=== PATIENT | female | born 1940 | race African-American/Black ===

== ENCOUNTER 2017-05-08 15:32 | Inpatient (IN) | payer OTHER ==
[~2017-05-08] VITALS: Ht 152.4 cm; Wt 80.9 kg
--- NOTE | ~2017-05-08 | EKG ---
[address] [address] ELECTROCARDIOGRAM REPORT Name: PENNINGTONAARTI Room #: 358-P ADM IN M.R.#: [id number] Admission: 05/08/17 Attend Phys: Cornell Myers MD Discharge: Date of : 40 Report #: [id number] THIS REPORT FOR: //name// [facility] ED Test Date: 2017-05-08 Test Time: 16:35:04 Pat Name: AARTI PENNINGTON Department: Room: 358 Gender: F Assistant Corporate Controller: KAELYN : 1940 Requested By: Vivek Christian Order Number: [id number] MD: Barron Haile Measurements Intervals [place] Rate: 82 P: 21 SD: 174 QRS: -14 QRSD: 85 T: 38 QT: 383 QTc: 448 Interpretive Statements Sinus rhythm Probable left atrial enlargement Left ventricular hypertrophy Inferior infarct, old Compared to ECG 02/03/2016 22:24:46 Left ventricular hypertrophy now present Myocardial infarct finding now present Sinus tachycardia no longer present T-wave abnormality no longer present Electronically Signed On 05-09-2017 9:06:04 CANDLE EXTRUSION MACHINE OPERATOR by Barron Haile [email or web address] <ELECTRONICALLY SIGNED> By: Barron Haile MD 05/09/17 0906 [id number] 1635 Barron Haile MD /EPI
[~2017-05-08 15:32] MED LIST: BISACODYL SUPP10 MG RECTAL; CELEXA10 MG PO; CERTAVITE SR-A1 EACH PO; CILOSTAZOL 100100 M1 PO; COLACE 100 MG100 MG PO; DUONEB 2.5-0.5 M3 ML INH; FENTANYL PA25 MCG/HR TRANSDERM; FIBER LAX625 MG PO; GLUCOPHAGE1000 MG PO; LASIX 20 MG TAB20 MG PO; LEVAQUIN 500 M500 M2 PO; LEVEMIR SUBQ; LEVOTHYROXIN0.025 MG PO; LIDODERM 5%1 PATCH TOP; LIPITOR80 MG PO; LOPERAMIDE2 MG PO; MAGOX 400400 MG PO; MIRALAX17 G1 PO; MUCINEX TA600 MG/TA2 PO; NEURONTIN 300300 M1 PO; NEURONTIN600 MG PO; PANTOPRAZOLE SO40 M1 PO; PERCOCET PO; PROBIOTIC1 EAC1 PO; PULMICORT0.25 MG/3; SINGULAIR 10 MG10 M1 PO; TRAMADOL HCL50 MG PO; TYLENOL325 MG PO
[2017-05-08 15:33] VITALS: BP 130/79
[2017-05-08 16:38] LABS: BE(vivo) 4.3 mmol/L (-2 to +3); PCO2 38.6 mmHg (35.0-45.0); PO2 57.6 mmHg (80.0-100.0); pH 7.478 (7.360-7.450); sO2 91.8 % (92.0-98.0)
[2017-05-08 17:12] LABS: ABSOLUTE NEUTROPHILS 10.1 thou/uL (1.4-8.2); BASOPHILS 0.8 % (0.0-2.0); EOSINOPHILS 0.4 % (0.0-3.0); HEMATOCRIT 46.1 % (37.0-47.0); HEMOGLOBIN 15.6 gm/dL (12.0-15.0); LYMPHOCYTES 20.8 % (24.0-44.0); MCH 29.4 pg (26.0-34.0); MCHC 33.8 g/dL (28.0-37.0); MONOCYTES 8.3 % (1.0-8.0); PLATELET COUNT 272 thou/uL (150-400); POLYS 69.7 % (36.0-66.0); RDW 15.9 % (10.5-14.5); WBC 14.4 thou/uL (4.0-11.0)
[2017-05-08 17:24] LABS: ANION GAP 9 mmol/L (7-16); BUN 15 mg/dL (7-18); CALCIUM 9.8 mg/dL (8.5-10.1); CHLORIDE 93 mmol/L (98-107); CO2 29 mmol/L (21-32); CREATININE 0.8 mg/dL (0.6-1.0); GLUCOSE 118 mg/dL (74-106); POTASSIUM 3.5 mmol/L (3.5-5.1); SODIUM 131 mmol/L (136-145)
[2017-05-08 17:29] LABS: ALBUMIN 3.3 g/dL (3.4-5.0); SGOT 19 U/L (15-37); SGPT 11 U/L (30-65); TOTAL BILIRUBIN 0.8 mg/dL (<0.1-1.0); TOTAL PROTEIN 7.8 g/dL (6.4-8.2); TROPONIN-I < 0.04 ng/mL (<0.06)
[2017-05-08 19:18] VITALS: BP 132/74
[2017-05-08 20:50] VITALS: BP 143/77
[2017-05-08 23:35] VITALS: BP 121/64
[2017-05-09 03:20] VITALS: BP 107/68
[2017-05-09 06:27] LABS: HEMATOCRIT 46.5 % (37.0-47.0); HEMOGLOBIN 15.6 gm/dL (12.0-15.0); MCH 29.5 pg (26.0-34.0); MCHC 33.5 g/dL (28.0-37.0); MCV 88.1 fL (80.0-100.0); RBC 5.28 mil/uL (4.20-5.00); RDW 15.5 % (10.5-14.5); WBC 9.5 thou/uL (4.0-11.0)
[2017-05-09 06:39] LABS: CALCIUM 9.4 mg/dL (8.5-10.1); POTASSIUM 3.1 mmol/L (3.5-5.1)
[2017-05-09 07:18] VITALS: BP 111/62
[2017-05-09 12:09] VITALS: BP 108/66
[2017-05-09 16:10] VITALS: BP 161/116
[2017-05-09 19:25] VITALS: BP 101/58
[2017-05-10 03:09] VITALS: BP 116/62
[2017-05-10 08:50] VITALS: BP 89/66
[2017-05-10 12:00] VITALS: BP 120/59
[2017-05-10 17:00] VITALS: BP 104/56
[2017-05-10 19:46] VITALS: BP 115/53
[2017-05-10] MEDS ORDERED: NEURONTIN 400M400 M2 PO (19:56)
[2017-05-11 05:49] VITALS: BP 111/53
[2017-05-11 08:48] LABS: CALCIUM 8.8 mg/dL (8.5-10.1); CREATININE 0.7 mg/dL (0.6-1.0); POTASSIUM 4.2 mmol/L (3.5-5.1)
[2017-05-11 08:53] VITALS: BP 107/54
[2017-05-11 14:35] VITALS: BP 107/54
[2017-05-11 15:35] VITALS: BP 107/54
[2017-05-11 16:29] VITALS: BP 107/54
== END 2017-05-11 19:00 | disposition home health service (06) | DRG 871 ==
LOC: ER 15:32 → EROBS 18:12 → 3W 18:12
PROVIDERS: Hospitalist; Physician Assistant
DX: A41.9 Sepsis, unspecified organism (principal); J96.01 Acute respiratory failure with hypoxia; J44.1 Chronic obstructive pulmonary disease with (acute) exacerbation; J44.0 Chronic obstructive pulmonary disease with (acute) lower respiratory infection; J20.9 Acute bronchitis, unspecified; Z96.651 Presence of right artificial knee joint; E11.9 Type 2 diabetes mellitus without complications; E89.0 Postprocedural hypothyroidism; I10 Essential (primary) hypertension; F17.210 Nicotine dependence, cigarettes, uncomplicated; G89.29 Other chronic pain; E66.01 Morbid (severe) obesity due to excess calories; E78.5 Hyperlipidemia, unspecified; Z79.899 Other long term (current) drug therapy; Z93.0 Tracheostomy status; Z68.34 Body mass index [BMI] 34.0-34.9, adult; Z88.0 Allergy status to penicillin
CPT/HCPCS: 10779

== ENCOUNTER 2020-12-30 00:21 | Inpatient (IN) | payer OTHER ==
[~2020-12-30] VITALS: Ht 154.9 cm; Wt 64.4 kg
--- NOTE | ~2020-12-30 | EMS ---
[address] [address] EMS Patient Care Report Name: AARTI PENNINGTON Room #: REG ANDRÉS Jaeger#: [id number] Admission: 12/30/20 Attend Phys: Discharge: Date of : 40 Report #: [id number] THIS REPORT FOR: //name// Report Transmitted: 12/30/2020 00:38 EMS Care Summary [place], [place]/[facility] Incident [id number] @ 12/29/2020 23:38 Incident Location [address] [place] [id number] Patient AARTI PENNINGTON Female, 80 Years 1940 Patient Address [address] [place] [address] Patient History Arthritis, Patient Allergies Penicillin allergy, Patient Medications Tramadol, Gabapentin, Chief Complaint SHORTNESS OF BREATH Disposition Transported No Lights/[place] Dispatch Reason Sick Person Transported To [facility] Narrative DISPATCHED TO A SICK. ARRIVED ON SCENE TO FIND FIRE CREW TALKING WITH PATIENT SITTING ON HER WALKER IN THE BACK BEDROOM. SHE SAID THAT SHE IS HAVING HEAD AND RIGHT SIDE PAIN FOR ABOUT A DAY NOW. SHE SAID SHE IS ALSO HAVING A CHRONIC LOWER BACK PAIN THAT IS BOTHERING HER TONIGHT. PATIENT VITALS WERE OBTAINED. [address] [address] EMS Patient Care Report Name: AARTI PENNINGTON Room #: REG ER Mil#: [id number] Admission: 12/30/20 Attend Phys: Discharge: Date of : 40 Report #: [id number] SHE WAS MOVED TO THE FRONT DOOR ON HER WHEELCHAIR AND ASSISTED IN STANDING AND SITTING ON THE COT. PATIENT WAS SECURED WITH STRAPS AND MOVED TO THE AMBULANCE. INSIDE THE AMBULANCE VITALS WERE REOBTAINED AND PATIENT MENTIONED THAT SHE HAS ALSO BEEN A LITTLE SHORT OF BREATH SINCE ABOUT 4PM THIS EVENING. HER LUNGS WERE AUCILTATED AND FOUND TO HAVE WHEEZES IN ALL JO. PATIENT WAS PLACED ON A 3 LEAD AND ADMINISTERED A NEBULIZED BREATHING TREATMENT. PATIENT WAS TRANSPORTED TO THE HOSPITAL WITH VITALS AND INTERVENTIONS MONITORED. DURING TRANSPORT SHE SAID SHE FELT LIKE HER BREATHING WAS BETTER BUT THE PAIN STILL REMAINED. UPON ARRIVAL AT THE HOSPITAL PATIENT WAS MOVED INTO THE ED ROOM 6 ON THE COT AND WAS LIFTED OVER TO THE HOSPITAL BED. PATIENT CARE WAS TURNED OVER TO ED NURSING STAFF. Initial Vitals @23:57BP: 188/78, @23:46P: 95,R: 18,BP: 174/81,Pain: 8/10,GCS: 15,CO: 5,SpO2: 100,Revised Trauma: 12, @00:10P: 90,R: 18,BP: 157/106,Pain: 8/10,GCS: 15,SpO2: 99,Revised Trauma: 12, Assessments @23:44MENTAL:Person Oriented,Place Oriented,Event Oriented,Time Oriented,SKIN:HEENT:Head/Face: No Abnormalities,Neck/Airway: No Abnormalities,LUNG SOUNDS:General: No Abnormalities,Left Upper: No Abnormalities,Right Upper: No Abnormalities,Left Lower: No Abnormalities,Right Lower: No Abnormalities,ABDOMEN:General: No Abnormalities,Left Upper: No Abnormalities,Right Upper: No Abnormalities,Left Lower: No Abnormalities,Right Lower: No Abnormalities,PELVIS//GI:No Abnormalities,EXTREMITIES:Capillary Refill: Right Upper: < 2 Sec,Left Arm: No Abnormalities,Right Arm: No Abnormalities,Left Leg: No Abnormalities,Right Leg: No Abnormalities,PULSE:Radial: 2+ Normal,NEURO:No Abnormalities, Impression Shortness of breath Procedures @23:44ALS AssessmentResponse: UnchangedSucceeded@23:50Albuterol - 2.5 Milligrams (mg) - NebulizedResponse: Unchanged@00:00Albuterol - 2.5 Milligrams (mg) - NebulizedResponse: Unchanged@23:50Oxygen FlowRate: 8 Device: Nebulizer Response: UnchangedSucceeded@23:50Atrovent - 0.5 Milligrams (mg) - NebulizedResponse: Unchanged@23:463-Lead ECGResponse: UnchangedSucceeded Timeline 23:37,Call Received 23:37,Dispatch Notified 23:38,Dispatched 23:39,En Route 23:43,On Scene [facility] [address] [place] [address] EMS Patient Care Report Name: AARTI PENNINGTON Room #: REG ANDRÉS Jaeger#: [id number] Admission: 12/30/20 Attend Phys: Discharge: Date of : 40 Report #: [id number] 23:44,At Patient 23:44,ALS Assessment,Response: UnchangedSucceeded, 23:46,3-Lead ECG,Response: UnchangedSucceeded, 23:46,BP: 174/81 M,PULSE: 95,RR: 18 R,SPO2: 100 Ox,ETCO2: ,BG: ,PAIN: 8,GCS: 15, 23:50,Albuterol - 2.5 Milligrams (mg) - Nebulized,Response: Unchanged 23:50,Oxygen FlowRate: 8 Device: Nebulizer Response: UnchangedSucceeded, 23:50,Atrovent - 0.5 Milligrams (mg) - Nebulized,Response: Unchanged 23:57,BP: 188/78 M,PULSE: ,RR: R,SPO2: Ox,ETCO2: ,BG: ,PAIN: ,GCS: , 00:00,Albuterol - 2.5 Milligrams (mg) - Nebulized,Response: Unchanged 00:05,Depart Scene 00:10,BP: 157/106 M,PULSE: 90,RR: 18 R,SPO2: 99 Ox,ETCO2: ,BG: ,PAIN: 8,GCS: 15, 00:15,At Destination 00:31,Call Closed Disclaimer v1.1 Copyright 2020 [employer] This EMS Care Summary contains data elements from the applicable legal record (which may be displayed differently). It is designed to provide pertinent information for the following purposes: continuity of care, clinical quality, and state data reporting. The complete legal record is available to ED staff and administrators of the receiving hospital in ES's Patient Tracker. All data is provided "as is."
[~2020-12-30 00:21] MED LIST changes: +NEURONTIN 400M400 M2 PO
[2020-12-30 00:22] VITALS: BP 148/88
[2020-12-30] MEDS ORDERED: ALEVE220 M1 PO (00:47)
[2020-12-30 01:58] LABS: ABSOLUTE NEUTROPHILS 11.8 thou/uL (1.4-8.2); BASOPHILS 0.6 % (0.0-2.0); HEMOGLOBIN 16.2 gm/dL (12.0-15.0); LYMPHOCYTES 8.5 % (24.0-44.0); MCH 31.2 pg (26.0-34.0); MCHC 33.1 g/dL (28.0-37.0); MCV 94.3 fL (80.0-100.0); MONOCYTES 2.1 % (1.0-8.0); PLATELET COUNT 232 thou/uL (150-400); POLYS 88.8 % (36.0-66.0); RDW 15.7 % (10.5-14.5); WBC 13.3 thou/uL (4.0-11.0)
[2020-12-30 02:05] LABS: CALCIUM 8.5 mg/dL (8.5-10.1); CREATININE 0.7 mg/dL (0.6-1.0); POTASSIUM 3.6 mmol/L (3.5-5.1)
[2020-12-30 02:15] LABS: ALBUMIN 3.4 g/dL (3.4-5.0); TOTAL BILIRUBIN 0.4 mg/dL (0.2-1.0); TOTAL PROTEIN 8.1 g/dL (6.4-8.2)
[2020-12-30 02:23] LABS: URINE BILIRUBIN NEGATIVE (Negative); URINE BLOOD TRACE (Negative); URINE CLARITY SL CLOUDY; URINE COLOR YELLOW; URINE GLUCOSE-RANDOM* NEGATIVE (Negative); URINE KETONES NEGATIVE (Negative); URINE LEUKOCYTES-REFLEX NEGATIVE (Negative); URINE NITRITE-REFLEX NEGATIVE (Negative); URINE PROTEIN (DIPSTICK) 1+ (Negative)
[2020-12-30 03:32] LABS: BACTERIA-REFLEX >30 Many /HPF (None Seen); CASTS None Seen /LPF (None Seen); CRYSTALS None Seen /LPF (None Seen); MUCUS None Seen strn/LPF (None Seen); SQUAMOUS None Seen /LPF (0-3); URINE RBC None Seen /HPF (NONE SEEN); URINE WBC-REFLEX None Seen /HPF (0-5)
[2020-12-30 07:39] VITALS: BP 187/90
[2020-12-30 12:47] VITALS: BP 164/84
--- NOTE | 2020-12-30 12:55 | NUR ---
PT HAS BEEN PTO SINCE ARRIVING. PT STATED SHE IS NOT HUNGRY AT THIS TIME.
[2020-12-30 17:00] VITALS: BP 123/59
[2020-12-30 17:30] VITALS: BP 123/67
[2020-12-30 19:52] VITALS: BP 142/50
--- NOTE | 2020-12-31 03:29 | NUR ---
SAT ON THE RECLINER FOR ABOUT 4 HOURS THEN BACK TO BED.USING PUREWICK AND BRIEF.DENIES PAIN.PT SELF SUCTION.MONITOR SHOWS SR.POC CONTINUED.
[2020-12-31 04:25] VITALS: BP 117/59
--- NOTE | 2020-12-31 07:34 | EKG ---
[place] [address] [facility] [place] [address] ELECTROCARDIOGRAM REPORT Name: AARTI PENNINGTON Room #: 212-P ADM IN M.R.#: [id number] Admission: 12/30/20 Attend Phys: Veronica Richardson Discharge: Date of : 40 Report #: [id number] [facility] ED Test Date: 2020-12-30 Test Time: 00:28:26 Pat Name: AARTI PENNINGTON Department: Room: [facility] Gender: F [employer] Superintendent: : 1940 Requested By: Natanael Amado Order Number: [id number] MD: Aleksandr Lorenzo Measurements Intervals [place] Rate: 94 P: 47 VA: 205 QRS: 28 QRSD: 98 T: 45 QT: 364 QTc: 456 Interpretive Statements Sinus rhythm Atrial premature complex Probable left atrial enlargement Compared to ECG 05/08/2017 16:35:04 Atrial premature complex(es) now present Left ventricular hypertrophy no longer present Myocardial infarct finding no longer present Electronically Signed On 12-31-2020 7:34:03 CDT by Aleksandr Lorenzo [email or web address] <ELECTRONICALLY SIGNED> By: Aleksandr Lorenzo MD, [facility] 12/31/20 0734 0028 0028 Aleksandr Lorenzo MD, [facility] /EPI
[2020-12-31 07:40] VITALS: BP 133/68
[2020-12-31 11:20] VITALS: BP 142/62
[2020-12-31 15:30] VITALS: BP 117/78
[2020-12-31 19:39] VITALS: BP 106/77
[2021-01-01 04:07] VITALS: BP 131/66
[2021-01-01 05:10] LABS: MCH 31.4 pg (26.0-34.0); MCHC 33.2 g/dL (28.0-37.0); MCV 94.4 fL (80.0-100.0); RBC 5.09 mil/uL (4.20-5.00); RDW 15.4 % (10.5-14.5); WBC 12.4 thou/uL (4.0-11.0)
[2021-01-01 07:30] VITALS: BP 135/71
--- NOTE | 2021-01-01 08:25 | NUR ---
SAT ON THE RECLINER UNTIL AROUND 2230 THEN ASSISTED HER TO BED.PUREWICK INTACT USES BRIEF.DENIES PAIN.MONITOR SHOWS SA.POC CONTINUED.
--- NOTE | 2021-01-01 11:59 | NUR ---
met with patient who admits with PNA. Patient resides at home with son and dtr in law. She uses walker and wc in home. She had Home based comminity services however she recently quit. He services through [email or web address]. She reports family inquiring into [employer]BC[employer] possibly with another company. Rn practioner from PCP visits every 2 weeks. She has [employer] Rn who also visits patient in home. Kely reports 4 steps to enter home and takes 3 men to assist with transport of patient up steps in [place]. patient reports she has bed side commode. She reports increase difficulty with sponge bathing. She is independent with her medications reports takes only pills. She cannot make meals but can assist with prep at times. Her family works during day. She is alone during day. reviewed role of casemgt. Following for dc planning.
--- NOTE | 2021-01-01 13:19 | NUR ---
Assumed care of pt this AM. Pt is A&O x3, unable to tell date. On RA, SR w/ a pause on the monitor. Pt denies any pain this AM. Female external cath in place & patent. CM following along for possible discharge today or tomorrow. Will continue to assess pt needs throughout the day.
[2021-01-01 14:55] VITALS: BP 112/57
[2021-01-01 19:43] VITALS: BP 135/75
[2021-01-02] VITALS (8 sets, daily range): BP systolic 116–139; BP diastolic 56–73
--- NOTE | 2021-01-02 02:53 | NUR ---
PATIENT RESTING IN RECLINER AT BEDSIDE WATCHING TV. PATIENT SON AT BEDSIDE FOR A VISIT. PATIENT STATES THAT SHE IS HAVING A GOOD DAY. STATES THAT HER COUGH HAS BEEN MORE FREQUENT TODAY AFTER SUBSIDING SOME THE PREVIOUS DAYS. SHE IS AAOX4. NOTED OSTOMY SIGHT TO THROAT FROM SURGERY FROM YEARS AGO. HER COUGH IS UNPRODUCTIVE. SHE DENIES PAIN OR NEEDS. SHE IS 94% ON RA. NEEDS ASSISTANCE TRANSFERRING FROM CHAIR TO BED. HAS PURWICK IN PLACE. ALL OTHER VITAL SIGNS STABLE. COMPLIANT WITH MEDICATION AN TREATMENT. WILL CONTINUE TO MONITOR FOR CHANGES IN PATIENT STATUS.
--- NOTE | 2021-01-02 15:00 | NUR ---
Pt dcing home this afternoon with HH orders. Pt's son to pickup at 4pm. HH options discussed and they do not wish to use [facility] again. [facility] selected and referral called to the liason. They can accept her ins and will see her in 1-2 days. Therapy worked with the pt and recommended hh vs snf at this time. Family is supportive.
[2021-01-02] MEDS ORDERED: PREDNISONE 20 M20 M1 PO (15:04)
[2021-01-02] MEDS ORDERED: PEPCID20 MG PO (15:04)
[2021-01-02] MEDS ORDERED: LEVOFLOXACIN750 MG PO (15:04)
--- NOTE | 2021-01-02 16:30 | NUR ---
Assumed care of pt this AM. Pt is A&O x3, struggles with date. Pt on RA, denies any chest pain. SR/ SA on the monitor. Pt denies any needs throuhgout day. Plan to d/c with son soon. Will continue to assess pt needs.
--- NOTE | 2021-01-02 16:46 | NUR ---
FAXED REFERRAL WITH H&P TO [facility]. WILL CONFIRM WITH MEHRAN/LIAISON THAT THEY RECEIVED. [facility] [phone]; FAX [phone]; [phone]
== END 2021-01-02 17:22 | disposition home health service (06) | DRG 871 ==
LOC: ER 00:21 → 2N 04:25 → EROBS 04:25 → 2N 17:00
PROVIDERS: Emergency Medicine; ADMIT Hospitalist; ATTEND Hospitalist
DX: A41.9 Sepsis, unspecified organism (principal); J18.9 Pneumonia, unspecified organism; J96.01 Acute respiratory failure with hypoxia; J44.0 Chronic obstructive pulmonary disease with (acute) lower respiratory infection; Z20.822 Contact with and (suspected) exposure to COVID-19; Z96.651 Presence of right artificial knee joint; M19.09 Primary osteoarthritis, other specified site; I10 Essential (primary) hypertension; E66.01 Morbid (severe) obesity due to excess calories; E78.5 Hyperlipidemia, unspecified; E89.0 Postprocedural hypothyroidism; D72.829 Elevated white blood cell count, unspecified; E11.42 Type 2 diabetes mellitus with diabetic polyneuropathy; F32.9 Major depressive disorder, single episode, unspecified; R53.81 Other malaise; G47.00 Insomnia, unspecified; G89.29 Other chronic pain; M54.5 Low back pain; M79.606 Pain in leg, unspecified; F17.210 Nicotine dependence, cigarettes, uncomplicated; Z93.0 Tracheostomy status; Z68.26 Body mass index [BMI] 26.0-26.9, adult; Z88.0 Allergy status to penicillin; Z71.6 Tobacco abuse counseling; Z79.899 Other long term (current) drug therapy
CPT/HCPCS: 10081